=== PATIENT | female | born 1985 | race Caucasian/White ===

== ENCOUNTER 2020-11-05 16:01 | Emergency (ER) | payer OTHER, SELFPAY ==
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
[2020-11-05 17:03] VITALS: BP 140/77; PULSE 74; RESP 16; TEMP 36.8; O2SAT 99; BMI 33.2
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
[2020-11-05] MEDS: NaPROXEN 500 MG TABLET PO (18:26)
== END 2020-11-05 19:05 | disposition home or self-care (01) ==
PROVIDERS: Emergency Provider Emergency Medicine; PCP Internal Medicine
DX: R07.81 Pleurodynia (principal); Z79.899 Other long term (current) drug therapy; F12.90 Cannabis use, unspecified, uncomplicated
CPT/HCPCS: 71111; 99284

== ENCOUNTER 2022-03-16 19:39 | Emergency (ER) | payer OTHER, SELFPAY ==
[2022-03-16 20:18] VITALS: BP 126/69; PULSE 72; RESP 18; TEMP 37.2; O2SAT 100; BMI 33.2
--- NOTE | 2022-03-16 22:55 | PC.NURSE ---
Called x 3 to triage for reassessment. No answer. Presumed LWT
== END 2022-03-16 23:01 | disposition left against medical advice (07) ==
PROVIDERS: Emergency Provider Emergency Medicine; PCP Internal Medicine
DX: J02.8 Acute pharyngitis due to other specified organisms (principal)
CPT/HCPCS: 99281

== ENCOUNTER 2024-06-03 13:23 | Outpatient (AMB) | payer OTHER, SELFPAY ==
--- NOTE | 2024-06-03 13:32 | A.OFFVIS_ITS ---
Vital Signs 06/03/24 13:35 Height 5 ft 5 in BP 102/68 Intake Visit Reasons: New patient Irregular menses Allergies No Known Allergies Allergy (Mild, Unverified 03/11/20 15:45) NOT APPLICABLE amoxicillin Allergy (Unknown, Verified 08/22/17 00:00) penicillin V Allergy (Unknown, Verified 08/22/17 00:00) rash HPI Comments Details: Presenting complaining of irregular menstrual cycles associated with passage of blood clots and pelvic cramping over the last few months associated with facial hair growth, no nipple discharge. Last co testing was few weeks ago with a pelvic ultrasound done at the patient is referring primary care office. [facility] Surgical History History of cholecystectomy Social History Substance Use Type: Marijuana Female Reproductive History Menstrual Duration of menses: 6-7 days Date of last menstrual period: 05/20/24 Total pregnancies: 4 Full term: 4 Review of Systems Const All systems reviewed & are unremarkable except as noted in HPI and below Physical Exam Vital Signs: Last Vital Signs BP 102/68 06/03/24 13:35 Chest Chest palpation & inspection: normal inspection of the chest and normal palpation of entire chest wall Breast/axilla inspection: normal inspection of the breasts and normal inspection of the axillae Breast/axilla palpation: normal palpation of the breasts and normal palpation of the axillae General: Yes no CVA tenderness External Female Exam: normal external appearance and normal appearance of the urethra Speculum Exam - Vagina: normal appearance of the vagina, normal palpation, no lesions and no masses Speculum Exam - Cervix: normal appearance of the cervix, normal palpation, no lesions, no masses and nontender Bimanual exam- vagina & uterus: normal bimanual exam, normal palpation, uterine size normal, normal palpation, uterine shape normal, No Cervical tenderness present and non-tender Bimanual Exam- Adnexa, other: normal adnexae Back/Spine/Pelvis Back: no CVA tenderness Results AMB Test Urine AMB Test Urine Negative Last Edit by Maday Rodrigues CMA on 13:45 Assessment & Plan Assessment & Plan (1) Abnormal uterine bleeding (AUB): Code(s): N93.9 - Abnormal uterine and vaginal bleeding, unspecified Category: Medical Plan: The patient was asked to sign a medical release form to request from the primary referring office the results of the recently done Co testing and pelvic ultrasound GC and chlamydia taken CBC, TSH, prolactin, HCG, and pelvic ultrasound ordered. Discussed with the patient the different causes of abnormal bleeding including thyroid disorders, uterine and ovarian pathology, endometrial hyperplasia, carcinoma and other potential causes. Discussed with the patient the work up including CBC (to r/o anemia), TSH, prolactin, pelvic Ultrasound, endometrial biopsy to r/o endometrial pathology. All questions answered and the patient verbalized understanding. Instructed the patient to schedule an appointment for an endometrial biopsy in 2 weeks. (2) Hirsutism: Code(s): L68.0 - Hirsutism Category: Medical Plan: Seventeen hydroxyprogesterone, testosterone free and total ordered Orders: Orders AMB HCG Urine Test Today Z32.02 - Encounter for test, result negative HCG Quantitative Today N93.9 - Abnormal uterine and vaginal bleeding, unspecified 17 Hydroxyprogesterone Today L68.0 - Hirsutism TSH reflex Free T4 Today N93.9 - Abnormal uterine and vaginal bleeding, unspecified Complete Blood Count no Diff Today N93.9 - Abnormal uterine and vaginal bleeding, unspecified Testosterone, Free/Total Today L68.0 - Hirsutism Medications: Discontinued cyclobenzaprine Discontinued Reason: Patient Completed Course 10 mg PO Q8H 10 tabs 0RF Muscle spasm oxycodone Discontinued Reason: Patient Completed Course 5 mg PO BID PRN 10 tabs 0RF pain lidocaine HCl 4% (Aspercreme (lidocaine HCl)) Can be substituted Discontinued Reason: Patient Completed Course 1 appl topical BID PRN 120 grams 0RF pain naproxen Discontinued Reason: Patient Completed Course 500 mg PO BID PRN 10 tabs 0RF pain Coding Level of Care Code New Pt Level 3 (96848) Diagnoses Abnormal uterine bleeding (AUB) N93.9 Hirsutism L68.0
[2024-06-03 13:35] VITALS: BP 102/68
== END 2024-06-03 13:51 | disposition home or self-care (01) ==
PROVIDERS: PCP Internal Medicine; Visit Provider Obstetrics & Gynecology
DX: N93.9 Abnormal uterine and vaginal bleeding, unspecified (principal); L68.0 Hirsutism; Z32.02 Encounter for pregnancy test, result negative
CPT/HCPCS: 99203

== ENCOUNTER 2024-06-03 13:23 | Outpatient (REF) | payer OTHER, SELFPAY ==
[2024-06-03 17:26] LABS: CT PCR NOT DETECTED (Not Detect.); NG PCR NOT DETECTED (Not Detect.)
== END 2024-06-03 13:24 | disposition home or self-care (01) ==
LOC: HO.LNP 13:23
PROVIDERS: PCP Internal Medicine; Visit Provider Obstetrics & Gynecology
DX: N93.9 Abnormal uterine and vaginal bleeding, unspecified (principal); L68.0 Hirsutism
CPT/HCPCS: 81025; 87491; 87591; 99202; 99459